=== PATIENT | female | born 1995 | race Caucasian/White ===

== ENCOUNTER → 2016-09-11 | Outpatient (CLI) | payer OTHER ==
[2016-09-11 19:45] LABS: BASO % 0.2 % (0.0-1.0); EOS # 0.1 K/mm3 (0.0-0.50); EOS % 0.8 % (0.0-3.0); LARGE UNSTAINED CELL # 0.1 K/mm3 (0.0-0.4); LARGE UNSTAINED CELL % 0.9 % (0.0-4.0); LYMPH # 1.3 K/mm3 (1.5-6.5); LYMPH % 13.3 % (24.0-44.0); MEAN CORPUSCULAR HEMOGLOBIN 29.7 pg (27.0-33.0); MEAN CORPUSCULAR HGB CONC 34.3 g/dl (32.0-36.5); MEAN CORPUSCULAR VOLUME 86.7 fl (80.0-96.0); MONO # 0.5 K/mm3 (0.0-0.8); MONO % 4.9 % (0.0-5.0); NEUTROPHILS # 7.6 K/mm3 (1.8-7.7); NEUTROPHILS % 79.8 % (36.0-66.0); PLATELET COUNT, AUTOMATED 310 k/mm3 (150-450); RED CELL DISTRIBUTION WIDTH 12.9 % (11.5-14.5); WHITE BLOOD COUNT 9.5 K/mm3 (4.0-10.0)
[2016-09-12 09:39] LABS: HBsAg Prenatal NEGATIVE (NEGATIVE)
[2016-09-12 14:16] LABS: HIV SCRN NEGATIVE (NEGATIVE); HIV SCRN1 NEGATIVE (NEGATIVE)
[2016-09-12 14:18] LABS: CONTROL LINE INT CTR LINE PRESENT
== END ==
LOC: M SMT 14:08
PROVIDERS: ATTEND Advanced Practice Midwife
DX: Z34.81 Encounter for supervision of other normal pregnancy, first trimester (principal)

== ENCOUNTER → 2016-11-16 | Outpatient (CLI) | payer OTHER ==
--- NOTE | 2016-11-16 13:42 | REP ---
OB ULTRASOUND: Real-time sonographic evaluation of the gravid uterus is performed. There is a single living intrauterine gestation with an estimated gestational age of 22 weeks 3 days, EDC 03/19/2017. Today's measurements indicate appropriate growth. BPD 59 mm = 24 weeks 0 days, 84th percentile HC 208 mm = 22 weeks 6 days, 65th percentile AC 178mm = 22 weeks 5 days, 56th percentile FL 43 mm = 24 weeks 0 days 89th percentile HC/AC ratio 1.17, within normal range. Estimated weight 577 grams, 73rd percentile. heart rate 136 beats per minute. SEEN/GROSSLY UNREMARKABLE Lateral ventricles yes Posterior fossa yes Upper lip yes Four-chamber heart yes LVOT yes RVOT yes Stomach yes Cord insertion yes Three vessel cord yes Kidneys yes Bladder yes Spine yes position: Vertex. Placenta: Anterior and grade 0 with no previa or abruption. Amniotic fluid: Within normal limits. Cervix is closed and measures 3.4 cm in length. Cystic structure of the right ovary probably represents a corpus luteum. Signed by Jaden Chiang MD 11/16/2016 05:01 P
== END ==
LOC: M RAD 12:02
PROVIDERS: ATTEND Advanced Practice Midwife
DX: Z34.82 Encounter for supervision of other normal pregnancy, second trimester (principal)

== ENCOUNTER → 2016-12-04 | Outpatient (CLI) | payer OTHER ==
[2016-12-04 19:01] LABS: MEAN CORPUSCULAR HEMOGLOBIN 29.3 pg (27.0-33.0); MEAN CORPUSCULAR HGB CONC 32.5 g/dl (32.0-36.5); MEAN CORPUSCULAR VOLUME 90.3 fl (80.0-96.0); RED CELL DISTRIBUTION WIDTH 13.3 % (11.5-14.5); WHITE BLOOD COUNT 12.1 K/mm3 (4.0-10.0)
== END ==
LOC: M SMT 13:24
PROVIDERS: ATTEND Advanced Practice Midwife
DX: Z34.82 Encounter for supervision of other normal pregnancy, second trimester (principal)

== ENCOUNTER → 2017-02-19 | Outpatient (REF) | payer OTHER | LOC: M LAB REF 17:03 | PROVIDERS: ATTEND Advanced Practice Midwife | DX: Z34.83 Encounter for supervision of other normal pregnancy, third trimester (principal) ==

== ENCOUNTER 2017-03-01 11:43 | Outpatient (CLI) | payer OTHER ==
[~2017-03-01] VITALS: Ht 165.1 cm; Wt 64.0 kg
[2017-03-01 11:56] VITALS: BP 118/71
[2017-03-01] MEDS ORDERED: DULO30CA PO (12:15)
[2017-03-01] MEDS ORDERED: ZOFR20TA PO (12:15)
[2017-03-01] MEDS ORDERED: PRENTAB9 PO (12:15)
[2017-03-01] MEDS ORDERED: ZANTTAB9 PO (12:15)
== END 2017-03-01 13:49 | disposition home or self-care (01) ==
LOC: M LDO 11:43
PROVIDERS: ATTEND Obstetrics & Gynecology
DX: O36.8130 Decreased fetal movements, third trimester, not applicable or unspecified (principal); Z3A.37 37 weeks gestation of pregnancy

== ENCOUNTER 2017-03-10 11:50 | Inpatient (IN) | payer OTHER ==
[2017-03-10] VITALS (22 sets, daily range): BP systolic 90–136; BP diastolic 52–86
[~2017-03-10] VITALS: Ht 165.1 cm; Wt 62.0 kg
[~2017-03-10 11:50] MED LIST: DULO30CA PO; PRENTAB9 PO; ZANTTAB9 PO; ZOFR20TA PO
[2017-03-10] MEDS ORDERED: LACTATED RINGER'S 1000 ML IV STA (15:38)
[2017-03-10] MEDS ORDERED: BUTORPHANOL 2 MG/ML INJ (J0595) IV ONE (16:00)
[2017-03-10] MEDS ORDERED: PROMETHAZINE INJ 25 MG/ML VIAL (J2550) IV ONE (16:00)
[2017-03-10 17:02] LABS: MEAN CORPUSCULAR HEMOGLOBIN 26.1 pg (27.0-33.0); MEAN CORPUSCULAR HGB CONC 32.4 g/dl (32.0-36.5); MEAN CORPUSCULAR VOLUME 80.4 fl (80.0-96.0); RED CELL DISTRIBUTION WIDTH 14.4 % (11.5-14.5); WHITE BLOOD COUNT 15.5 K/mm3 (4.0-10.0)
[2017-03-10] MEDS ORDERED: FENTANYL 2MCG/ML ROPIVACAINE 0.2% IN 0.9% NACL 200ML IVBAG As Ordered ONE (20:42)
[2017-03-10] MEDS ORDERED: OXYTOCIN 30 UNITS IN 0.9% NaCl 500ML IV BAG (J2590) As Ordered ONE (20:43)
--- NOTE | 2017-03-10 21:53 | HPE ---
DATE OF ADMISSION: 03/10/2017 21-year-old 1, estimated date of delivery 03/19/2017 presents at 38 weeks 5 days with contractions and cervical change after therapeutic rest. Denies loss of fluid or bleeding. Fetus is active. Last normal menstrual period 06/12/2016 for KATHY 03/19/2017. Sono at 9 weeks confirmed date. Anatomy scan within normal limits. Appropriate care. ALLERGIES: She has no known drug allergies. MEDICAL AND SURGICAL: Anxiety treated with Cymbalta through the . FAMILY HISTORY: Hypertension, melanoma, mental health disorders and multiple sclerosis. SOCIAL HISTORY: to father of the baby, present and supportive. Denies tobacco, alcohol, drugs or abuse. OBJECTIVE: Prepregnancy weight 124, total weight gain 19 pounds. O+, antibody negative, rubella immune, VDRL, hep B, hep C, HIV, gonorrhea, Chlamydia all negative. Declined genetic screening. 1-hour glucose 109. Group B strep is negative. She is mildly uncomfortable. Heart rate is regular. Respirations are easy. Abdomen is soft, gravid, longitudinal lie. heart 125, minimal to moderate variability post Stadol with accelerations. Uterine contractions 5 to 7 minutes apart for 60 seconds and moderate. Sterile vaginal exam 4 cm, 90% effaced, -1, midline and cephalic. ASSESSMENT: Primipara at term, early labor, category two tracing. PLAN: Admit. The patient plans epidural. Anticipate normal spontaneous vaginal . [facility]
[2017-03-10] MEDS ORDERED: EPIDURAL COMMENT XX SCH (22:40)
[2017-03-10] MEDS ORDERED: NALOXONE INJ 0.4 MG/1 ML VIAL (J2310) IV PRN (22:40)
[2017-03-10] MEDS ORDERED: EPIDURAL/PCA KEYS XX PRN (22:40)
[2017-03-10] MEDS ORDERED: ePHEDrine SULFATE 25 MG/5 ML(5MG/ML) SYRINGE IV PRN (22:40)
[2017-03-10] MEDS ORDERED: FENTANYL/ROPIVACAINE/NACL BAG 200 ML EPIDURAL SCH (22:40)
[2017-03-10] MEDS ORDERED: LACTATED RINGER'S 1000 ML IV PRN (22:40)
[2017-03-10] MEDS ORDERED: ONDANSETRON 4MG/2ML VIAL (J2405) IV PRN (22:40)
[2017-03-10] MEDS ORDERED: diphenhydrAMINE INJ 50MG/ML VIAL (J1200) IV PRN (22:40)
[2017-03-10] MEDS ORDERED: REFRIGERATOR IV KEYS XX PRN (22:40)
[2017-03-10] MEDS: LR 1,000 ML IV SCH (22:48)
[2017-03-10] MEDS ORDERED: OXYTOCIN DRIP 30 UNITS in APPROPRIATE DILUENT 1 EA IV SCH (23:15)
[2017-03-11] VITALS (20 sets, daily range): BP systolic 95–135; BP diastolic 50–79
[2017-03-11] MEDS: LR 1,000 ML IV SCH (04:08)
[2017-03-11] MEDS: DULoxetine 20 MG CAP (CYMBALTA) PO SCH ×2 (04:08→21:04)
[2017-03-11] MEDS ORDERED: ANUSOL HC CREAM 30GM TOP PRN (04:15)
[2017-03-11] MEDS ORDERED: DIBUCAINE 1% OINTMENT 30GM TOP PRN (04:15)
[2017-03-11] MEDS ORDERED: METHYLERGONOVINE MALEATE 0.2 MG TAB PO PRN (04:15)
[2017-03-11] MEDS ORDERED: MOM 30ML SUSPENSION UDC PO PRN (04:15)
[2017-03-11] MEDS ORDERED: MEASLES,MUMPS,RUBELLA VACCINE INJ (MMR-II) (90707) SC SCH (04:15)
[2017-03-11] MEDS ORDERED: RHOGAM 300 MCG (1500 IU) INJ (J2790) IM SCH (04:15)
[2017-03-11] MEDS ORDERED: DOCUSATE SODIUM 100 MG CAP PO PRN (04:15)
[2017-03-11] MEDS: ACETAMINOPHEN 500 MG TAB PO PRN ×2 (05:42→14:11)
--- NOTE | 2017-03-11 06:21 | DN ---
DATE: 03/11/2017 Utilized epidural for coping. Fully dilated 0317. Spontaneous rupture of membranes. Small amount particulate meconium stained fluid. Viable male delivered LUISA compound with anterior left arm at 0345. Bulb suctioned at delivery. Spontaneous respirations with stimulation. Transitioned on maternal abdomen. Cord doubly clamped and cut once pulsations ceased. 8 and 9. Placenta, Howe intact with three-vessel cord at 0350. Fundus firmed with massage and IV Pitocin bolus. Second-degree perineal laceration repaired in layers with #3-0 Vicryl Rapide. Estimated blood loss 150 mL. weight 7 pounds 10, 3462 grams. Sponge, sharp and instrument count correct. Parents are naming their boy Dawson. MTDD
[2017-03-11] MEDS: PRENATAL VITAMINS CHEWABLE TABLET PO SCH (09:00)
[2017-03-11] MEDS: IBUPROFEN 800 MG TAB PO PRN ×2 (09:51→18:30)
[2017-03-12] MEDS: IBUPROFEN 800 MG TAB PO PRN ×4 (01:25→21:05)
[2017-03-12 06:13] VITALS: BP 116/73
[2017-03-12] MEDS: PRENATAL VITAMINS CHEWABLE TABLET PO SCH (08:13)
[2017-03-12 18:06] VITALS: BP 126/71
[2017-03-12] MEDS: DULoxetine 20 MG CAP (CYMBALTA) PO SCH (21:04)
[2017-03-13] MEDS: IBUPROFEN 800 MG TAB PO PRN (04:51)
[2017-03-13 06:01] VITALS: BP 126/82
[2017-03-13] MEDS: PRENATAL VITAMINS CHEWABLE TABLET PO SCH (08:49)
[2017-03-13] MEDS ORDERED: TYLE500T78 PO (10:56)
[2017-03-13] MEDS ORDERED: ZANTTAB9 PO (10:56)
[2017-03-13] MEDS ORDERED: MOTR200T44 PO (10:56)
[2017-03-13] MEDS ORDERED: DULO30CA PO (10:56)
[2017-03-13] MEDS ORDERED: ZOFR20TA PO (10:56)
[2017-03-13] MEDS ORDERED: PRENTAB9 PO (10:56)
== END 2017-03-13 14:38 | disposition home or self-care (01) | DRG 775 ==
LOC: M LDO 11:50 → M LDI 19:44 → M OBS 03-11 06:29
PROVIDERS: ADMIT Advanced Practice Midwife; ATTEND Advanced Practice Midwife
PROC: 10E0XZZ Delivery of Products of Conception, External Approach (ICD-10-PCS; principal; 2017-03-11)
PROC: 0KQM0ZZ Repair Perineum Muscle, Open Approach (ICD-10-PCS; 2017-03-11)
DX: O99.344 Other mental disorders complicating childbirth (principal); F41.9 Anxiety disorder, unspecified; Z79.899 Other long term (current) drug therapy; Z82.49 Family history of ischemic heart disease and other diseases of the circulatory system; Z81.8 Family history of other mental and behavioral disorders; Z80.9 Family history of malignant neoplasm, unspecified; Z82.8 Family history of other disabilities and chronic diseases leading to disablement, not elsewhere classified; Z37.0 Single live birth; Z3A.38 38 weeks gestation of pregnancy; O77.0 Labor and delivery complicated by meconium in amniotic fluid; O64.5XX0 Obstructed labor due to compound presentation, not applicable or unspecified; O70.1 Second degree perineal laceration during delivery

== ENCOUNTER → 2017-05-21 | Outpatient (CLI) | payer OTHER ==
[~2017-05-21] MED LIST changes: +MOTR200T44 PO; +TYLE500T78 PO
[2017-05-21 13:24] LABS: CONTROL LINE HCG INT CTR LINE PRESENT
[2017-05-21 15:24] LABS: GLUCOSE,RANDOM 77 MG/DL (LESS THAN 200); T UPTAKE 33 % (30-39); THYROXINE (T4) 10.3 UG/DL (4.5-12.0)
== END ==
LOC: M SMT 10:08
PROVIDERS: ATTEND Advanced Practice Midwife
DX: F41.9 Anxiety disorder, unspecified (principal)

== ENCOUNTER 2018-02-20 10:50 | Emergency (ER) | payer OTHER ==
[2018-02-20 11:41] LABS: BASO % 0.6 % (0.0-1.0); EOS % 0.3 % (0.0-3.0); HEMATOCRIT 41.9 % (36.0-47.0); HEMOGLOBIN 13.4 g/dl (12.0-15.5); IMMATURE GRANULOCYTE % 0.1 % (0-3.0); LYMPH # 1.6 10^3/uL (1.5-6.5); LYMPH % 22.1 % (24.0-44.0); MEAN CORPUSCULAR HEMOGLOBIN 27.1 pg (27.0-33.0); MEAN CORPUSCULAR VOLUME 84.6 fl (80.0-96.0); MONO # 0.7 10^3/uL (0.0-0.8); MONO % 9.2 % (0.0-5.0); NEUTROPHILS # 4.9 10^3/uL (1.8-7.7); NEUTROPHILS % 67.7 % (36.0-66.0); PLATELET COUNT, AUTOMATED 418 10^3/uL (150-450); RED BLOOD COUNT 4.95 10^6/uL (4.00-5.40); RED CELL DISTRIBUTION WIDTH 13.6 % (11.5-14.5); WHITE BLOOD COUNT 7.2 10^3/uL (4.0-10.0)
[2018-02-20 11:45] LABS: KETONE, URINE AUTO RFX NEGATIVE (NEGATIVE); LEUKOCYTE ESTERASE UR AUTO RFX NEGATIVE (NEGATIVE); MUCUS, URINE RFX SMALL (NEGATIVE); NITRITE, URINE AUTO RFX NEGATIVE (NEGATIVE); RBC, URINE AUTO RFX 0 /HPF (0-3); SPECIFIC GRAVITY UR AUTO RFX 1.016 (1.002-1.035); SQUAM EPITHELIAL CELL UR AURFX 1 /HPF (0-6); WBC, URINE AUTO RFX 0 /HPF (0-3)
[2018-02-20 12:12] LABS: ALBUMIN 3.7 GM/DL (3.2-5.2); ALBUMIN/GLOBULIN RATIO 0.86 (1.00-1.93); ALKALINE PHOSPHATASE 58 U/L (45-117); ALT/SGPT 19 U/L (12-78); ANION GAP 8 MEQ/L (8-16); AST/SGOT 12 U/L (7-37); BILIRUBIN,DIRECT 0.1 MG/DL (0.0-0.2); BILIRUBIN,TOTAL 0.4 MG/DL (0.2-1.0); BLOOD UREA NITROGEN 9 MG/DL (7-18); CALCIUM LEVEL 9.3 MG/DL (8.5-10.1); CARBON DIOXIDE LEVEL 26 MEQ/L (21-32); CHLORIDE LEVEL 108 MEQ/L (98-107); CREATININE FOR GFR 0.73 MG/DL (0.55-1.30); GLOMERULAR FILTRATION RATE > 60.0 (>60); GLUCOSE, FASTING 84 MG/DL (70-100); SODIUM LEVEL 142 MEQ/L (136-145)
== END 2018-02-20 13:20 | disposition home or self-care (01) ==
LOC: M ED 10:50
DX: G89.29 Other chronic pain (principal); R10.31 Right lower quadrant pain; Z79.3 Long term (current) use of hormonal contraceptives; Z79.899 Other long term (current) drug therapy
CPT/HCPCS: 76856

== ENCOUNTER → 2018-03-25 | Outpatient (REF) | payer OTHER | LOC: M SFHCLERA 17:47 | DX: M54.5 Low back pain (principal) ==

== ENCOUNTER → 2018-04-08 | Outpatient (REF) | payer OTHER | LOC: M SFHCLERA 14:09 | DX: J02.9 Acute pharyngitis, unspecified (principal) ==

== ENCOUNTER 2018-04-24 18:55 | Emergency (ER) | payer OTHER ==
[2018-04-25] MEDS: diphenhydrAMINE INJ 50MG/ML VIAL (J1200) IV (00:07)
[2018-04-25] MEDS: ONDANSETRON 4MG/2ML VIAL (J2405) IV (00:07)
[2018-04-25] MEDS: KETOROLAC 30 MG/ML VIAL (J1885) IV (00:07)
== END 2018-04-25 01:25 | disposition home or self-care (01) ==
LOC: M ED 18:55
DX: G44.40 Drug-induced headache, not elsewhere classified, not intractable (principal); T42.4X5A Adverse effect of benzodiazepines, initial encounter; F41.9 Anxiety disorder, unspecified; Z79.899 Other long term (current) drug therapy
CPT/HCPCS: J1200

== ENCOUNTER → 2018-07-08 | Outpatient (REF) | payer OTHER ==
[2018-07-08 20:24] LABS: BASO # 0.1 10^3/uL (0.0-0.2); BASO % 0.6 % (0.0-1.0); EOS # 0.2 10^3/uL (0.0-0.50); EOS % 2.6 % (0.0-3.0); HEMATOCRIT 40.4 % (36.0-47.0); IMMATURE GRANULOCYTE % 0.1 % (0-3.0); LYMPH # 2.7 10^3/uL (1.5-6.5); LYMPH % 33.4 % (24.0-44.0); MEAN CORPUSCULAR HGB CONC 32.2 g/dl (32.0-36.5); MEAN CORPUSCULAR VOLUME 86.9 fl (80.0-96.0); MONO # 0.6 10^3/uL (0.0-0.8); MONO % 7.4 % (0.0-5.0); NEUTROPHILS # 4.6 10^3/uL (1.8-7.7); NEUTROPHILS % 55.9 % (36.0-66.0); PLATELET COUNT, AUTOMATED 391 10^3/uL (150-450); RED BLOOD COUNT 4.65 10^6/uL (4.00-5.40); RED CELL DISTRIBUTION WIDTH 13.9 % (11.5-14.5); WHITE BLOOD COUNT 8.2 10^3/uL (4.0-10.0)
[2018-07-08 20:36] LABS: ALBUMIN 3.8 GM/DL (3.2-5.2); ALBUMIN/GLOBULIN RATIO 0.97 (1.00-1.93); ALKALINE PHOSPHATASE 74 U/L (45-117); ALT/SGPT 27 U/L (12-78); ANION GAP 5 MEQ/L (8-16); AST/SGOT 16 U/L (7-37); BILIRUBIN,TOTAL 0.2 MG/DL (0.2-1.0); BLOOD UREA NITROGEN 10 MG/DL (7-18); CALCIUM LEVEL 9.3 MG/DL (8.5-10.1); CARBON DIOXIDE LEVEL 29 MEQ/L (21-32); CHLORIDE LEVEL 105 MEQ/L (98-107); CREATININE FOR GFR 0.66 MG/DL (0.55-1.30); GLOMERULAR FILTRATION RATE > 60.0 (>60); GLUCOSE, FASTING 98 MG/DL (70-100); POTASSIUM SERUM 4.1 MEQ/L (3.5-5.1); SODIUM LEVEL 139 MEQ/L (136-145); THYROID STIMULATING HORMONE 0.743 uIU/ML (0.358-3.740); TOTAL PROTEIN 7.7 GM/DL (6.4-8.2)
[2018-07-08 20:39] LABS: TOTAL 25(OH) VITAMIN D 25.2 NG/ML (30.0-100.0)
== END ==
LOC: M LAB REF 19:55
DX: Z13.9 Encounter for screening, unspecified (principal)